=== PATIENT | female | born 1940 | race Caucasian/White ===

== ENCOUNTER → 2024-07-04 | Outpatient (CLI) | payer MEDICARE, SELFPAY ==
--- NOTE | 2024-07-04 | XR_ITS ---
Examination: PA lateral chest 2 views TECHNIQUE: Upright PA lateral chest 2 views Exam date and time: July 04, 2024 1515 hours INDICATIONS: History pulmonary nodule FINDINGS: Normal heart size No pneumonia or pulmonary edema No pulmonary nodule is depicted IMPRESSION: No active disease
== END | disposition home or self-care (01) ==
PROVIDERS: Referring Provider Specialist; Visit Provider Specialist
DX: R91.1 Solitary pulmonary nodule (principal)
CPT/HCPCS: 71046

== ENCOUNTER 2024-07-29 15:51 | Inpatient (IN) | payer MEDICARE, SELFPAY ==
[2024-07-29] VITALS (9 sets, daily range): BP systolic 120–156; BP diastolic 74–94; PULSE 67–80; RESP 14–23; TEMP 36.8–36.9; O2SAT 76–99; BMI 29.5
--- NOTE | 2024-07-29 16:04 | XR_ITS ---
Examination: PA lateral chest 2 views TECHNIQUE: Upright PA lateral chest 2 views INDICATIONS: Coughing up blood today FINDINGS: Normal heart size Lungs are clear. The osseous structures are intact IMPRESSION: No pneumonia or pulmonary edema If the patient has true hemoptysis, consider CT chest without contrast follow-up
--- NOTE | 2024-07-29 16:05 | PD.EDRME ---
Rapid Medical Screening Exam [facility] Arrival date/time: 07/29/24 15:51 84-year-old female with a history of hypertension, hyperlipidemia presents to the emergency room with a chief complaint of coughing and vomiting up bright red blood. I have greeted and performed a focused initial assessment of this patient. A comprehensive ED assessment and evaluation of the patient, analysis of all test results, and completion of the medical decision making process will be conducted by additional ED providers. Chief Complaint: GI Bleed Vital signs: Vital Signs Temperature 98.4 F 07/29/24 16:01 Pulse Rate 74 07/29/24 16:01 Respiratory Rate 20 07/29/24 16:01 Blood Pressure 156/74 H 07/29/24 16:01 Pulse Oximetry (%) 96 07/29/24 16:01 Oxygen Delivery Method Room Air 07/29/24 16:01 Vital signs reviewed by provider: Yes
[2024-07-29 17:12] LABS: Basophils % (Auto) 0 % (0-2.5); Eosinophils # (Auto) 0.1 Thou/mm3 (0.0-0.5); Eosinophils % (Auto) 2 % (0-10); Hematocrit 36.1 % (36.0-46.0); Hemoglobin 11.9 g/dL (12.0-16.0); Immature Granulocytes % (Auto) 0 % (0-0); Immature Granulocytes Auto 0.02 Thou/mm3 (0.00-0.00); Lymphocytes # (Auto) 2.2 Thou/mm3 (1.0-4.8); Lymphocytes % (Auto) 29 % (10-50); Mean Corpuscular Volume 91 fL (80-100); Monocytes # (Auto) 0.6 Thou/mm3 (0.0-0.8); Monocytes % (Auto) 9 % (0-12); Neutrophils # (Auto) 4.5 Thou/mm3 (1.8-7.7); Neutrophils % (Auto) 60 % (37-80); Nucleated Red Blood Cell % 0 /100 WBC (0); Platelet Count 199 Thou/mm3 (140-440); RDW Standard Deviation 46.6 fL (36.4-46.3); Red Blood Count 3.97 Miln/mm3 (4.00-5.20); White Blood Count 7.5 Thou/mm3 (3.6-11.0)
--- NOTE | 2024-07-29 17:21 | PD.EDGIBLD ---
ED GI Bleed RME/HPI General Chief complaint: GI Bleed Stated complaint: VOMITING BLOOD Time Seen by Provider: 07/29/24 17:16 Arrival date/time: 07/29/24 15:51 RME / HPI RME / HPI Narrative: 84-year-old female patient with significant history of hypertension, hyperlipidemia, macular degeneration, left eye blindness, on Plavix, came in for evaluation regarding vomiting blood. Patient has been having epigastric pain since yesterday, has been taking YESTERDAY, but today patient vomiting get worse this time associated with vomiting fresh blood about 1/2 cup full of blood. Patient denies any blood in the stool denies any changes to the color of the stool. Patient denies any dizziness denies any other complaints no medications taken prior travel. Related Data Home Medications ?Medication ?Instructions ?Recorded ?Confirmed bisacodyl 5 mg tablet,delayed 5 mg PO QDAY 08/27/22 08/27/22 release (Laxative (bisacodyl)) clopidogrel 75 mg tablet 75 mg PO QDAY 08/27/22 08/27/22 donepezil 5 mg tablet 5 mg PO HS 08/27/22 08/27/22 furosemide 40 mg tablet 40 mg PO QDAY 08/27/22 08/27/22 loratadine 10 mg tablet 10 mg PO QDAY 08/27/22 08/27/22 losartan 100 mg tablet 100 mg PO QDAY 08/27/22 08/27/22 meloxicam 15 mg tablet 15 mg PO QDAY PRN Pain 08/27/22 08/27/22 nifedipine 60 mg tablet,extended 60 mg PO QDAY 08/27/22 08/27/22 release potassium chloride 10 mEq 10 meq PO BID 08/27/22 08/27/22 tablet,extended release(part/cryst) rosuvastatin 20 mg tablet 20 mg PO AC 08/27/22 08/27/22 thyroid (pork) 60 mg tablet 60 mg PO QDAY 08/27/22 08/27/22 ([place] Thyroid) Allergies Allergy/AdvReac Type Severity Reaction Status Date / Time Penicillins Allergy Intermediate Rash Verified 07/29/24 15:55 Review of Systems Review of Systems Narrative Review of Systems: Review of system reviewed and within normal limits except mentioned in HPI ED Exam Narrative Physical exam: VITAL SIGNS: Reviewed. GENERAL APPEARANCE: Alert and interactive, follows commands, no acute distress, HEAD AND FACE: Non-traumatic. ENT: PERRL, pink conjunctivitis, eyelid no trauma, Mucous membrane moist. NECK: Supple, nontender, no nuchal rigidity. CHEST: No tenderness, no crepitus, no paradoxical movement, no retractions. LUNGS: Clear, well ventilated, symmetric, no rales, no wheezing, no ronchi, no stridor, good breath sounds bilaterally. HEART: Regular rate, regular rhythm, no murmur, no gallops. ABDOMEN: Soft, positive bowel sounds, nondistended, no guarding, nontender, no rebound, no masses, RECTAL: Deferred. GENITAL: Deferred. NEUROLOGICAL: Gross motor function intact sensory function intact, Appropriate for age. MUSCULOSKELETAL: low back nontender, full range of motion. EXTREMITIES: Nontender, full range of motion. SKIN: Color pink, dry, no rash, no lacerations, no abrasions, no contusions. LYMPHATICS: Deferred. Course Quality Measures none Orders Category Date Time Status COVID-19 Screening Questionnaire NOW Care 07/29/24 21:[address] Screening NOW Care 07/29/24 18:43 Active Decision to Admit X1 Care 07/29/24 21:47 Active Endoscopy Consents .On arrival Care 07/29/24 20:37 Active Insert IV NOW Care 07/29/24 17:14 Active NPO NOW Care 07/29/24 19:33 Active NPO after Midnight ONCE Care 07/29/24 20:37 Active Occult Blood,Stool (Nursing) ONCE Care 07/29/24 17:16 Active Consult to Gastroenterology Stat Cons 07/29/24 18:44 Ordered Diet NPO (NOW) Diet 07/29/24 19:33 Active Diet NPO after Midnight Diet 07/30/24 00:[address] abdomen pelvis w con Stat Exams 07/29/24 18:43 Completed XR chest 2V Stat Exams 07/29/24 16:04 Completed CBC Stat Lab 07/29/24 16:38 Completed CMP [Comprehensive Metabolic Panel] Stat Lab 07/29/24 16:38 Completed Cocci Serology IgM with reflex to IgG [Cocci Serology, Lab 07/29/24 16:38 Received Unk History] Stat Lipase Stat Lab 07/29/24 16:38 Completed Occult Blood, Stool (LAB) Stat Lab 07/29/24 17:25 Completed PT [Prothrombin Time with INR] Stat Lab 07/29/24 16:38 Completed PTT [Partial Thromboplastin Time] Stat Lab 07/29/24 16:38 Completed Type and Screen Stat Lab 07/29/24 16:38 Completed UA, C/S IF [Urinalysis, C/S if Indicated] Stat Lab 07/29/24 18:49 Completed Ondansetron Inj [Zofran Inj] Med 07/29/24 17:17 Discontinued 4 mg IV X1 ONE Pantoprazole Inj [Protonix Inj] Med 07/29/24 17:17 Discontinued 80 mg IV X1 ONE Sodium Chloride 0.9% 1000 ml [Ns] 1,000 ml Med 07/29/24 18:46 Discontinued IV 999 mls/hr Vital Signs Vital signs: Vital Signs Temperature 98.4 F 07/29/24 16:01 Pulse Rate 74 07/29/24 16:01 Respiratory Rate 20 07/29/24 16:01 Blood Pressure 156/74 H 07/29/24 16:01 Pulse Oximetry (%) 96 07/29/24 16:01 Oxygen Delivery Method Room Air 07/29/24 16:01 GI Bleed [facility] Narrative [facility] Narrative:: 84-year-old female patient with significant history of hypertension, hyperlipidemia, macular degeneration, left eye blindness, on Plavix, came in for evaluation regarding vomiting blood. Patient has been having epigastric pain since yesterday, has been taking YESTERDAY, but today patient vomiting get worse this time associated with vomiting fresh blood about 1/2 cup full of blood. Patient denies any blood in the stool denies any changes to the color of the stool. Patient denies any dizziness denies any other complaints no medications taken prior travel. Patient's workup today all came back unremarkable. CT scan of the abdomen and pelvis also showed gastritis pattern otherwise unremarkable. Spoke with GI specialist, who told me to admit the patient for endoscopy tomorrow morning. Patient data External records reviewed:: None Clinical information provided by:: none Social determinants that could affect healthcare access:: none Patient has the following chronic illnesses:: None How is presenting disease/condition affected by chronic disease/condition?: no chronic disease Evaluation data The following diagnostics were reviewed and interpreted by me:: lab results and radiology exam(s) Lab and/or radiology exams considered but not ordered:: None Interpretation Summary: See results in MDM Medications / Prescriptions Medications or Prescriptions considered but not ordered:: None Medication administrations:: Medication Administration History Discontinued Medications Sodium Chloride (Ns) 1,000 mls @ 999 mls/hr IV .Q1H1M ONE Stop: 07/29/24 19:46 Ondansetron HCl (Ondansetron Inj 2 Mg/Ml Inj 2 Ml) 4 mg IV X1 ONE; Protocol Stop: 07/29/24 17:18 Last Admin: 07/29/24 17:37 Dose: 4 mg Documented By: WILL Pantoprazole Sodium (Pantoprazole Inj 40 Mg Vial) 80 mg IV X1 ONE Stop: 07/29/24 17:18 Last Admin: 07/29/24 17:36 Dose: 80 mg Documented By: WILL Protonix IV, Zofran and IV fluids for hydration Consultations Consultation(s) initiated? (list below): Yes Consultation #1 (Physician, Specialty, Details): Dr. Garay, GI specialist on-call thank you Dr. Garay Diagnosis GI bleed differential diagnosis: esophageal varices, Jacquelyn-Malone syndrome and Upper gastrointestinal hemorrhage Most likely diagnosis given after review of the tests above:: Vomiting blood Admission Indicated Admission indicated?: indicated Admission Request Was there a request for admission?: Yes Admission Attestation Admission request attestation: Discussed case with Hospitalist service regarding admission. Discussed patients ED course, exam findings, labs, and radiology results. The Hospitalist [agrees,to accept the patient for admission. Disposition Plan Disposition Plan: Admit Discharge Plan Plan Patient Disposition: Admit Acute Care w/in Hospital Disposition Comment: Stable Prescriptions/Referrals Prescriptions/Med Rec: No Action furosemide 40 mg tablet 40 mg PO QDAY Patient Comments: TAKE 1 TABLET BY MOUTH EVERY DAY donepezil 5 mg tablet 5 mg PO HS Patient Comments: TAKE 1 TABLET BY MOUTH EVERYDAY AT BEDTIME meloxicam 15 mg tablet 15 mg PO QDAY PRN (Reason: Pain) Patient Comments: TAKE 1 TABLET BY MOUTH EVERY DAY NEEDED FOR PAIN clopidogrel 75 mg tablet 75 mg PO QDAY Patient Comments: TAKE 1 TABLET BY MOUTH EVERY DAY bisacodyl [Laxative (bisacodyl)] 5 mg tablet,delayed release (DR/EC) 5 mg PO QDAY Patient Comments: USE DIRECTED nifedipine 60 mg tablet extended release 60 mg PO QDAY Patient Comments: TAKE 1 TABLET BY MOUTH EVERY DAY ON EMPTY STOMACH FOR 90 DAYS losartan 100 mg tablet 100 mg PO QDAY Patient Comments: TAKE 1 TABLET BY MOUTH EVERY DAY loratadine 10 mg tablet 10 mg PO QDAY Patient Comments: TAKE 1 TABLET BY MOUTH EVERY DAY FOR 90 DAYS rosuvastatin 20 mg tablet 20 mg PO AC Patient Comments: TAKE 1 TABLET BY MOUTH EVERY DAY potassium chloride 10 mEq tablet,ER particles/crystals 10 meq PO BID Patient Comments: TAKE 1 TABLET BY MOUTH TWICE A DAY thyroid (pork) [[place] Thyroid] 60 mg tablet 60 mg PO QDAY Referrals: Hermes Mackey MD [Primary Care Provider] - In 1 week Problem List Clinical Impression: Vomiting blood Patient/Caregiver Discharge Instructions Print Language: Bol[place]ian Stand Alone Forms: [employer] Award Info., Patient Portal Info Letter
[2024-07-29] MEDS: PANTOPRAZOLE INJ 40 MG VIAL 80 MG IV (17:36)
[2024-07-29] MEDS: ONDANSETRON INJ 2 MG/ML INJ 2 ML 4 MG IV (17:37)
[2024-07-29 17:49] LABS: INR 1.1 (0.9-1.3); Partial Thromboplastin Time 26.9 Seconds (22.0-36.0); Prothrombin Time 11.8 Seconds (9.0-12.2)
[2024-07-29 18:05] LABS: Alanine Aminotransferase 23 U/L (10-49); Albumin, Serum 4.7 gm/dL (3.4-4.8); Albumin/Globulin Ratio 1.8 (1.2-2.2); Alkaline Phosphatase 82 U/L (46-116); Anion Gap 8 (7-16); Aspartate Amino Transferase 25 U/L (0-34); BUN/Creatinine Ratio 27 Ratio (12-20); Bilirubin,Total 0.6 mg/dL (0.3-1.2); Blood Urea Nitrogen 24 mg/dL (9-23); Calcium 10.5 mg/dL (8.3-10.6); Calcium (Corrected) 10.5 mg/dL (8.5-10.1); Carbon Dioxide 28.1 mMol/L (20.0-31.0); Chloride 102 mMol/L (98-107); Creatinine (Component) 0.9 mg/dL (0.6-1.3); Estimated Creatinine Clearance 46.2 mL/min (>60); Globulin 2.6 gm/dL (2.3-3.5); Glucose 90 mg/dL (74-106); Osmolality,Calculated 279 (275-295); Potassium 4.3 mMol/L (3.4-5.1); Sodium 138 mMol/L (136-145); Total Protein 7.3 gm/dL (5.7-8.2); eGFR > 60 See Note
[2024-07-29 18:08] LABS: OBS Developer Lot # 224; OBS Performed By boted; OBS QC OK? Yes; Occult Blood, Stool Negative (Negative)
[2024-07-29 18:23] LABS: Lipase 46 U/L (12-53)
--- NOTE | 2024-07-29 18:43 | XR_ITS ---
Examination: CT abdomen with intravenous contrast CT pelvis with intravenous contrast 2-D coronal reconstructions 2-D sagittal reconstructions Date and time of exam:July 29, 2024 1957 hours INDICATIONS: Vomiting blood today. CTDI: vol (mGy) 10.9 DLP: (mGycm) 629 Technique: Multiple axial sections of the abdomen and pelvis have been obtained. 64 slice high-resolution scanner used. 3 mm axial sections have been obtained, post intravenous injection of 60 cc [id number] 2-D sagittal, coronal reconstructions obtained. Low dose protocols were performed. One or more of the following dose reduction techniques were used; automated exposure control, adjustment of the mA and/or KV according to patient size, use of iterative reconstruction technique. Findings: No focal liver lesions Thickening of the gastric mucosa Contracted gallbladder Spleen is not enlarged No pancreatic mass Normal adrenal glands No renal or ureteral calculi, no hydronephrosis No pericecal inflammatory change 15 mm fat-containing umbilical hernia Colonic diverticulosis, no diverticulitis Air in the urinary bladder, no bladder mass Advanced degenerative disc disease L4-L5, L5-S1 IMPRESSION: Gastritis pattern
[2024-07-29 18:58] LABS: Collection Type, Urine Clean Catch
[2024-07-29 19:20] LABS: Bilirubin,Urine Negative (Negative); Blood,Urine Negative (Negative); Clarity,Urine Clear (Clear/Hazy); Color,Urine Colorless (Lt Yel-Yel); Culture Indicated,Urine Not Indicated; Glucose, Urine Negative (Negative); Ketones,Urine Negative (Negative); Leukocyte Esterase,Urine Positive (Negative); Nitrite,Urine Negative (Negative); PH,Urine 6.5 (5.0-7.0); Protein,Urine Negative (Neg - Trace); RBC,Urine 1 /hpf (0-3); Specific Gravity,Urine 1.006 (1.001-1.035); Squamous Epithelial Cell,Urine < 1 /hpf (0-5); Urobilinogen,Urine Negative mg/dL (0.0-1.0); WBC,Urine 1 /hpf (0-5)
[2024-07-29] MEDS: SODIUM CHLORIDE 0.9% 1000 ML 1,000 ML 999 ML IV (19:56)
--- NOTE | 2024-07-29 20:32 | PD.IMCONS ---
HPI Data of Consult Primary Care Provider: Hermes Mackey MD Consult Narrative Reason for consult: Hematemesis History of present illness: 84 years of female presented to the emergency room with hematemesis Presenting hemoglobin hematocrit 7.9 and 36.1 with a platelet count of 199,000 BUN/creatinine at [address] scan of the abdomen pelvis is pending at the moment She does take Plavix patient does have a history of essential hypertension hyperlipidemia macular degeneration of the eyes with the left eye completely blind and on Plavix cc:: cc: Review of Systems Review of Systems Systems Reviewed: All systems reviewed, normal except as documented Past Medical History Surgical History OTHER SURGICAL HX: As in the history of present illness Meds Home Medications and Allergies Home Medications ?Medication ?Instructions ?Recorded ?Confirmed ?Type bisacodyl 5 mg tablet,delayed 5 mg PO QDAY 08/27/22 08/27/22 History release (Laxative (bisacodyl)) clopidogrel 75 mg tablet 75 mg PO QDAY 08/27/22 08/27/22 History donepezil 5 mg tablet 5 mg PO HS 08/27/22 08/27/22 History furosemide 40 mg tablet 40 mg PO QDAY 08/27/22 08/27/22 History loratadine 10 mg tablet 10 mg PO QDAY 08/27/22 08/27/22 History losartan 100 mg tablet 100 mg PO QDAY 08/27/22 08/27/22 History meloxicam 15 mg tablet 15 mg PO QDAY PRN Pain 08/27/22 08/27/22 History nifedipine 60 mg tablet,extended 60 mg PO QDAY 08/27/22 08/27/22 History release potassium chloride 10 mEq 10 meq PO BID 08/27/22 08/27/22 History tablet,extended release(part/cryst) rosuvastatin 20 mg tablet 20 mg PO AC 08/27/22 08/27/22 History thyroid (pork) 60 mg tablet 60 mg PO QDAY 08/27/22 08/27/22 History ([place] Thyroid) Allergies Allergy/AdvReac Type Severity Reaction Status Date / Time Penicillins Allergy Intermediate Rash Verified 07/29/24 15:55 Exam Vital Signs Temp Pulse Resp BP Pulse Ox O2 Del Method 98.3 F 72 23 H 136/79 H 96 Room Air 07/29/24 17:20 07/29/24 17:20 07/29/24 17:20 07/29/24 17:20 07/29/24 17:20 07/29/24 17:20 Constitutional Comments: Alert oriented Routine Respiratory Exam Comments: Normal to auscultation Routine Abdominal Exam Comments: Soft nontender Results Labs 07/29/24 16:38 07/29/24 16:38 Labs: Short CBC 07/29/24 Range/Units 16:38 WBC 7.5 (3.6-11.0) Thou/mm3 Hgb 11.9 L (12.0-16.0) g/dL Hct 36.1 (36.0-46.0) % Plt Count 199 (140-440) Thou/mm3 BMP 07/29/24 16:38 Sodium 138 Potassium 4.3 Chloride 102 Carbon Dioxide 28.1 BUN 24 H Creatinine 0.9 Glucose 90 Calcium 10.5 Liver Function 07/29/24 Range/Units 16:38 Total Bilirubin 0.6 (0.3-1.2) mg/dL AST 25 (0-34) U/L ALT 23 (10-49) U/L Alkaline Phosphatase 82 (46-116) U/L Albumin 4.7 (3.4-4.8) gm/dL Urine 07/29/24 Range/Units 18:49 Urine Color Colorless A (Lt Yel-Yel) Urine Clarity Clear (Clear/Hazy) Urine pH 6.5 (5.0-7.0) Ur Specific [place] 1.006 (1.001-1.035) Urine Protein Negative (Neg - Trace) Urine Glucose (UA) Negative (Negative) Assessment and Plan Additional Assessment & Plan Additional Plan: # Hematemesis in a patient on Plavix Plan N.p.o. Serial CBC Consent obtained for fiberoptic esophagogastroduodenoscopy with possible biopsy possible therapeutic intervention under intravenous moderate sedation scheduled for tomorrow Will follow the patient Other medical problems include Essential hypertension Hyperlipidemia Macular degeneration of the eyes with left eye completely blind On Plavix Thank you once again for the opportunity to participate care of this patient
--- NOTE | 2024-07-29 23:33 | PD.RESHP ---
Documentation for date of: 07/29/24 HPI History of Present Illness Chief complaint: Hematemesis History of present illness: 83-year-old female with past medical history of hypertension, hyperlipidemia, hypothyroidism, aortic stenosis, history of colon cancer underwent surgery in [facility] in , history of gastric ulcer, hiatal hernia presented to the hospital with chief complaints of bloody vomiting. Patient was apparently normal till this morning. On the day of admission, patient went to her routine physical therapy and after returning home patient felt mild abdominal discomfort and sat down on the couch later had a bloody vomiting of approximately 100 to 150 mL. Denies abdominal pain, heartburn, palpitations, syncope, chest pain. Denies melena, hematochezia. Denies any similar episodes in the past but stated that she had abdominal pain for which she underwent endoscopy many years back and was diagnosed with having hiatal hernia and peptic ulcer disease. Dr. Garay was consulted and recommended endoscopy on 07/30/2024 ED Course: -Initial vitals were blood pressure 156/74 mmHg, rest of the vitals are within normal limits -Labs significant for Hb 11.9, BUN 24, creatinine 0.9. Urine analysis showed colorless, positive for leukocyte Esterace -CT abdomen showed gastritis pattern -In the ED, patient was given pantoprazole 80 Mg. -Patient was admitted for upper GI bleed, likely secondary to peptic ulcer disease Past medical history: Hypertension, hyperlipidemia, hypothyroidism, aortic stenosis, history of colon cancer, gastric ulcer, hiatal hernia Past surgical history: Bilateral knee replacement, spine surgery, surgery for colon cancer in Social history: Denies smoking, alcohol, other illicit drug abuse. Review of Systems Review of Systems Systems Reviewed: All systems reviewed, normal except as documented Exam Vital Signs Temp Pulse Resp BP Pulse Ox O2 Del Method 98.3 F 73 17 152/86 H 99 Room Air 07/29/24 17:20 07/29/24 23:00 07/29/24 23:00 07/29/24 23:00 07/29/24 23:00 07/29/24 21:15 Narrative Exam General: Awake. HEENT: Normocephalic, atraumatic, mucous membranes moist. Heart: Regular rate and rhythm, ejection systolic murmur heard at aortic area Lungs: Clear to auscultation with no wheezing or crackles. Abdomen: Soft, nondistended, nontender, positive bowel sounds. ?No guarding or rebound tenderness. Neurologic: Alert and oriented x3, no gross neurological deficit, and patient able to move all 4 extremities. Extremities: No edema. Skin: No rash or ecchymoses. Results: Labs 07/30/24 04:35 07/30/24 04:35 Labs: Short CBC 07/29/24 Range/Units 16:38 WBC 7.5 (3.6-11.0) Thou/mm3 Hgb 11.9 L (12.0-16.0) g/dL Hct 36.1 (36.0-46.0) % Plt Count 199 (140-440) Thou/mm3 BMP 07/29/24 16:38 Sodium 138 Potassium 4.3 Chloride 102 Carbon Dioxide 28.1 BUN 24 H Creatinine 0.9 Glucose 90 Calcium 10.5 Liver Function 07/29/24 Range/Units 16:38 Total Bilirubin 0.6 (0.3-1.2) mg/dL AST 25 (0-34) U/L ALT 23 (10-49) U/L Alkaline Phosphatase 82 (46-116) U/L Albumin 4.7 (3.4-4.8) gm/dL Urine 07/29/24 Range/Units 18:49 Urine Color Colorless A (Lt Yel-Yel) Urine Clarity Clear (Clear/Hazy) Urine pH 6.5 (5.0-7.0) Ur Specific [place] 1.006 (1.001-1.035) Urine Protein Negative (Neg - Trace) Urine Glucose (UA) Negative (Negative) Quality Measures Quality Measures none Advance care planning discussed with:: patient and child Medications Home Medications and Allergies Home Medications ?Medication ?Instructions ?Recorded ?Confirmed ?Type bisacodyl 5 mg tablet,delayed 5 mg PO QDAY 08/27/22 07/30/24 History release (Laxative (bisacodyl)) clopidogrel 75 mg tablet 75 mg PO QDAY 08/27/22 08/27/22 History donepezil 5 mg tablet 5 mg PO HS 08/27/22 07/30/24 History furosemide 40 mg tablet 40 mg PO QDAY 08/27/22 08/27/22 History loratadine 10 mg tablet 10 mg PO QDAY 08/27/22 08/27/22 History losartan 100 mg tablet 100 mg PO QDAY 08/27/22 07/30/24 History meloxicam 15 mg tablet 15 mg PO QDAY PRN Pain 08/27/22 08/27/22 History nifedipine 60 mg tablet,extended 60 mg PO QDAY 08/27/22 08/27/22 History release potassium chloride 10 mEq 10 meq PO BID 08/27/22 08/27/22 History tablet,extended release(part/cryst) rosuvastatin 20 mg tablet 20 mg PO AC 08/27/22 08/27/22 History thyroid (pork) 60 mg tablet 60 mg PO QDAY 08/27/22 08/27/22 History ([place] Thyroid) Allergies Allergy/AdvReac Type Severity Reaction Status Date / Time Penicillins Allergy Intermediate Rash Verified 07/29/24 15:55 Visit Medications Discontinued Medications Sodium Chloride (Ns) 1,000 mls @ 999 mls/hr IV .Q1H1M ONE Stop: 07/29/24 19:46 Last Infusion: 07/29/24 21:30 Dose: Infused Ondansetron HCl (Ondansetron Inj 2 Mg/Ml Inj 2 Ml) 4 mg IV X1 ONE; Protocol Stop: 07/29/24 17:18 Last Admin: 07/29/24 17:37 Dose: 4 mg Pantoprazole Sodium (Pantoprazole Inj 40 Mg Vial) 80 mg IV X1 ONE Stop: 07/29/24 17:18 Last Admin: 07/29/24 17:36 Dose: 80 mg Assessment & Plan Plan 83-year-old female with past medical history of hypertension, hyperlipidemia, hypothyroidism, aortic stenosis, history of colon cancer underwent surgery in [facility] in , history of gastric ulcer, hiatal hernia presented to the hospital with chief complaints of bloody vomiting and admitted for upper GI bleed likely secondary to peptic ulcer disease due to clopidogrel # Hematemesis, upper GI bleed # Likely peptic ulcer disease vs Gastritis in the setting of clopidogrel intake -Patient had a history of hiatal hernia and gastric ulcer many years ago which was diagnosed endoscopically -Presented to the hospital with complaints of 1 episode of bloody emesis on the day of admission, 100 to 150 mL -Denies melena, hematochezia, abdominal pain. -Vitals are stable at the time of admission -Hemoglobin is 11.9 at the time of admission and hemoglobin in 2021 is 11.9 -No abnormality detected on abdominal examination -CT abdomen showed gastritis pattern -Patient received 80 Mg of IV pantoprazole in the ED Plan -Dr. Garay was consulted and recommended endoscopy on 07/30/2024 -Patient was kept on n.p.o. 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 IV lines: Peripheral Code status: Full code Patient plan of care was discussed with the attending physician, Dr. Ninfa Canas, PGY1 Attending Provider Attestation/Addendum I attest that I was physically present for the evaluation, physical examination, lab and imaging review of the patient with the residents. I discussed the case with the residents and agree with the findings and plans of care as documented above. Patient is an 83 years old female with past medical history of hypertension, hyperlipidemia, hypothyroidism, aortic stenosis, colon cancer status postsurgery, gastric ulcer, hiatal hernia who presented to the ED with complaint of bloody vomiting. At bedside, patient appears comfortable, denies abdominal pain, heartburn, melena or hematochezia. Noted to have blood pressure of 156/74, rest of the vitals were within normal limits. Hemoglobin was 11.9. CT abdomen was done which shows gastritis pattern. Patient received pantoprazole IV 80 mg in the ED. Dr. Garay was consulted by ED, who recommended admission of the patient for endoscopy. We will admit patient for upper GI bleeding likely secondary to peptic ulcer disease while patient was taking clopidogrel. Started patient on pantoprazole 40 mg IV twice daily, we will keep patient n.p.o. and await GI recommendations. We will continue her home medication for hypothyroidism. Plan to resume her antihypertensives if blood pressure starts to go higher. Carlos Ocasio MD
[2024-07-30] VITALS (24 sets, daily range): BP systolic 137–187; BP diastolic 62–96; PULSE 61–77; RESP 13–42; TEMP 36.3–37.1; O2SAT 91–100
--- NOTE | 2024-07-30 02:54 | PC.NURSE ---
Pt asleep with family at bedside. Coffee provided to family.
[2024-07-30 04:49] LABS: Basophils % (Auto) 0 % (0-2.5); Eosinophils # (Auto) 0.1 Thou/mm3 (0.0-0.5); Eosinophils % (Auto) 3 % (0-10); Hematocrit 33.3 % (36.0-46.0); Hemoglobin 11.1 g/dL (12.0-16.0); Immature Granulocytes % (Auto) 0 % (0-0); Immature Granulocytes Auto 0.01 Thou/mm3 (0.00-0.00); Lymphocytes # (Auto) 1.6 Thou/mm3 (1.0-4.8); Lymphocytes % (Auto) 35 % (10-50); Mean Corpuscular HGB Conc 33.3 g/dl (31.0-37.0); Mean Corpuscular Hemoglobin 29.9 pg (25.0-35.0); Mean Corpuscular Volume 90 fL (80-100); Monocytes # (Auto) 0.4 Thou/mm3 (0.0-0.8); Monocytes % (Auto) 9 % (0-12); Neutrophils # (Auto) 2.4 Thou/mm3 (1.8-7.7); Neutrophils % (Auto) 53 % (37-80); Nucleated Red Blood Cell % 0 /100 WBC (0); Platelet Count 159 Thou/mm3 (140-440); RDW Standard Deviation 46.2 fL (36.4-46.3); Red Blood Count 3.71 Miln/mm3 (4.00-5.20); White Blood Count 4.6 Thou/mm3 (3.6-11.0)
[2024-07-30 05:09] LABS: Anion Gap 6 (7-16); BUN/Creatinine Ratio 21 Ratio (12-20); Blood Urea Nitrogen 17 mg/dL (9-23); Calcium 9.6 mg/dL (8.3-10.6); Carbon Dioxide 31.1 mMol/L (20.0-31.0); Chloride 107 mMol/L (98-107); Creatinine (Component) 0.8 mg/dL (0.6-1.3); Glucose 111 mg/dL (74-106); Osmolality,Calculated 289 (275-295); Sodium 144 mMol/L (136-145); Thyroid Stimulating Hormone 0.49 uIU/mL (0.55-4.78); eGFR > 60 See Note
[2024-07-30 06:11] LABS: Glucose Estimated Average 126 mg/dL (80-131)
[2024-07-30] MEDS: PANTOPRAZOLE INJ 40 MG VIAL IVP ×2 (09:29→20:23)
[2024-07-30] MEDS: LOSARTAN POTASSIUM 25 MG TABLET 50 MG PO (09:30)
[2024-07-30 14:40] LABS: Cocci Serology, IgM Negative (Negative)
--- NOTE | 2024-07-30 17:04 | PD.RESPRO ---
Documentation for date of: 07/30/24 Subjective Subjective Interval history: Patient was seen and examined at bedside in ICU this AM. No acute events overnight. Patient NPO for EGD, adequate urine output and mentation is at baseline. Patient endorses improvement of abdominal pain and no more episodes of hematemsis or hematochezia. She has not had a BM yet since hospitalization. Pending GI recommendations post EGD , Hb 11.1 and Hct 33% Exam Vital Signs Temp Pulse Resp BP Pulse Ox O2 Del Method O2 Flow Rate 98.1 F 69 14 173/78 H 99 Nasal Cannula 1 07/30/24 14:22 07/30/24 14:52 07/30/24 14:52 07/30/24 14:52 07/30/24 14:52 07/30/24 14:22 07/30/24 14:42 Narrative Exam Constitutional Alert, oriented x3 and comfortable, elderly HEENT Vision grossly intact. Patent nares. Trachea midline. Respiratory Chest normal on inspection and clear to auscultation bilaterally. Cardiovascular S1 and S2 audible, RRR. No murmurs or carotid bruit. No gross JVD. Abdominal Soft, tender to palpation in epigastric region. BS + Genitourinary No bladder tenderness, no flank pain. Normal to palpation. Musculoskeletal Extremities tone within normal limits. No LE edema. Neurological CN II - XII grossly intact. Extremity motor and sensation grossly intact. Skin Varicosities and skin changes noted on B/L LE Psychiatric Patient has a good affect, is cooperative. Objective Labs 07/30/24 04:35 07/30/24 04:35 Labs: Laboratory Results - last 24 hr 07/29/24 07/29/24 07/29/24 16:38 17:25 18:49 WBC 7.5 RBC 3.97 L Hgb 11.9 L Hct 36.1 MCV 91 MCH 30.0 MCHC 33.0 RDW Std Deviation 46.6 H Plt Count 199 Neut % (Auto) 60 Lymph % (Auto) 29 [place] % (Auto) 9 Eos % (Auto) 2 Baso % (Auto) 0 Neut # (Auto) 4.5 Lymph # (Auto) 2.2 [place] # (Auto) 0.6 Eos # (Auto) 0.1 Baso # (Auto) 0.0 Immature Gran # (Auto) 0.02 H Absolute Nucleated RBC 0.00 Immature Gran % 0 Nucleated RBC % 0 PT 11.8 INR 1.1 APTT 26.9 Sodium 138 Potassium 4.3 Chloride 102 Carbon Dioxide 28.1 Anion Gap 8 BUN 24 H Creatinine 0.9 Estim Creat Clear Calc 46.2 L eGFR > 60 BUN/Creatinine Ratio [address] Glucose [address] Glu mg/dL Hemoglobin A1c Calculated Osmolality 279 Calcium 10.5 Corrected Calcium 10.5 H Total Bilirubin 0.6 AST 25 ALT 23 Alkaline Phosphatase 82 Total Protein 7.3 Albumin 4.7 Globulin 2.6 Albumin/Globulin Ratio 1.8 Lipase 46 TSH Ur Collection Type Clean Catch Urine Color Colorless A Urine Clarity Clear Urine pH 6.5 Ur Specific [place] 1.006 Urine Protein Negative Urine Glucose (UA) Negative Urine Ketones Negative Urine Blood Negative Urine Nitrite Negative Urine Bilirubin Negative Urine Urobilinogen (Auto) Negative Ur Leukocyte Esterase Positive Urine RBC 1 Urine WBC 1 Ur Squamous Epith Cells < 1 Urine Bacteria None Ur Culture Indicated? Not Indicated Stool Occult Blood Negative Coccidioides IgM Ab Negative Blood Type O Positive Antibody Screen NEGATIVE Blood Bank Wristband ID Yes 07/30/24 04:35 WBC 4.6 RBC 3.71 L Hgb 11.1 L Hct 33.3 L MCV 90 MCH 29.9 MCHC 33.3 RDW Std Deviation 46.2 Plt Count 159 D Neut % (Auto) 53 Lymph % (Auto) 35 [place] % (Auto) 9 Eos % (Auto) 3 Baso % (Auto) 0 Neut # (Auto) 2.4 Lymph # (Auto) 1.6 [place] # (Auto) 0.4 Eos # (Auto) 0.1 Baso # (Auto) 0.0 Immature Gran # (Auto) 0.01 H Absolute Nucleated RBC 0.00 Immature Gran % 0 Nucleated RBC % 0 PT INR APTT Sodium 144 Potassium 4.0 Chloride 107 Carbon Dioxide 31.1 H Anion Gap 6 L BUN 17 Creatinine 0.8 Estim Creat Clear Calc 52.0 L eGFR > 60 BUN/Creatinine Ratio 21 H Glucose [address] Glu mg/dL 126 Hemoglobin A1c 6.0 Calculated Osmolality 289 Calcium 9.6 Corrected Calcium Total Bilirubin AST ALT Alkaline Phosphatase Total Protein Albumin Globulin Albumin/Globulin Ratio Lipase TSH 0.49 L Ur Collection Type Urine Color Urine Clarity Urine pH Ur Specific [place] Urine Protein Urine Glucose (UA) Urine Ketones Urine Blood Urine Nitrite Urine Bilirubin Urine Urobilinogen (Auto) Ur Leukocyte Esterase Urine RBC Urine WBC Ur Squamous Epith Cells Urine Bacteria Ur Culture Indicated? Stool Occult Blood Coccidioides IgM Ab Blood Type Antibody Screen Blood Bank Wristband ID Quality Measures Quality Measures none Advance care planning discussed with:: patient and child Assessment & Plan Assessment Current Active Medications: Generic Name Dose Route Start Last Admin Trade Name Freq PRN Reason Stop Dose Admin Acetaminophen 650 mg 07/29/24 23:38 Acetaminophen 325 Mg Tablet PO 08/28/24 23:37 Q6H PRN Fever >101.5 Hydralazine HCl 10 mg 07/30/24 17:03 Hydralazine Inj 20 Mg/Ml Vial IV 07/30/24 17:04 X1 ONE Levothyroxine Sodium 75 mcg 07/31/24 06:00 Levothyroxine Sodium 25 Mcg Tablet PO 08/29/24 05:59 ACBR EL Losartan Potassium 50 mg 07/30/24 09:00 07/30/24 09:30 Losartan Potassium 25 Mg Tablet PO 08/29/24 08:59 50 mg QDAY EL Administration Ondansetron HCl 4 mg 07/29/24 23:38 Ondansetron Inj 2 Mg/Ml Inj 2 Ml IV 08/28/24 23:37 Q6H PRN NAUSEA OR VOMITING Protocol Pantoprazole Sodium 40 mg 07/30/24 09:00 07/30/24 09:29 Pantoprazole Inj 40 Mg Vial IVP 08/29/24 08:59 40 mg BID EL Administration Plan Patient is a 83-year-old female with past medical history of hypertension, hyperlipidemia, hypothyroidism, aortic stenosis, history of colon cancer underwent surgery in [facility] in , history of gastric ulcer, hiatal hernia presented to the hospital with chief complaints of bloody vomiting and admitted for upper GI bleed likely secondary to peptic ulcer disease due to clopidogrel 1. Hematemesis, likely upper GI bleed 2. R/o peptic ulcer disease vs Gastritis secondary to 3. Active clopidogrel use, chronic 4. Hiatel hernia 5. Hx of gastric ulcers -Patient had a history of hiatal hernia and gastric ulcer many years ago which was diagnosed endoscopically -Presented to the hospital with complaints of 1 episode of large bloody emesis on the day of admission, 100 to 150 mL -Denies melena, hematochezia, abdominal pain. -Vitals are stable at the time of admission -Hemoglobin is 11.9 at the time of admission (hemoglobin in 2021 is 11.9) -No abnormality detected on abdominal examination -CT abdomen : gastritis pattern -In the ED, received 80 Mg of IV pantoprazole x1 Plan -Dr. Garay was consulted, appreciate recommendations -Endoscopy planned for 07/30/2024 -Patient NPO until further recs -On pantoprazole 40 Mg IV twice daily [07/30- 6. History of hypertension 7. History of hypothyroidism -Resumed her home medications -TSH = 0.45 (low) -Monitor her blood pressures and titrate medication accordingly 8. History of aortic stenosis 9. History of heart failure -Patient was following with Dr Hutchinson in [place] -Is using Lasix for the lower extremity swelling, denies history of CAD Plan: -Recommended to continue follow-up on outpatient basis with her lean manufacturing leader -May need to re-evaluate need for plavix Hospital Maintenance: Dispo: Tele/ICU , pending EGD by Dr Garay DVT ppx: SCD GI ppx: Pantoprazole Diet: N.p.o. IV lines: Peripheral Code status: Full code Plan of care discussed with attending Lion Kraft M.D. PGY2
[2024-07-30] MEDS: hydrALAZINE INJ 20 MG/ML VIAL 10 MG IV (18:05)
--- NOTE | 2024-07-30 23:45 | PC.NURSE ---
Dr. Antony aware of low bp new order for 500ns bolus will recheck bp after bolus. Pt is alert no c/o pain or discomfort resp even and unlabored 0 sob.
[2024-07-31] VITALS: BP 159/86; PULSE 86; RESP 18; TEMP 36.4; O2SAT 96
[2024-07-31 04:00] VITALS: BP 163/78; PULSE 65; RESP 16; TEMP 36.6; O2SAT 94
[2024-07-31] MEDS: LEVOTHYROXINE SODIUM 25 MCG TABLET 75 MCG PO (05:38)
[2024-07-31 05:42] LABS: Basophils % (Auto) 0 % (0-2.5); Eosinophils # (Auto) 0.2 Thou/mm3 (0.0-0.5); Eosinophils % (Auto) 2 % (0-10); Hematocrit 34.4 % (36.0-46.0); Hemoglobin 11.3 g/dL (12.0-16.0); Immature Granulocytes % (Auto) 0 % (0-0); Immature Granulocytes Auto 0.02 Thou/mm3 (0.00-0.00); Lymphocytes # (Auto) 1.7 Thou/mm3 (1.0-4.8); Lymphocytes % (Auto) 27 % (10-50); Mean Corpuscular HGB Conc 32.8 g/dl (31.0-37.0); Mean Corpuscular Hemoglobin 29.9 pg (25.0-35.0); Mean Corpuscular Volume 91 fL (80-100); Monocytes # (Auto) 0.6 Thou/mm3 (0.0-0.8); Monocytes % (Auto) 9 % (0-12); Neutrophils # (Auto) 3.9 Thou/mm3 (1.8-7.7); Neutrophils % (Auto) 61 % (37-80); Nucleated Red Blood Cell % 0 /100 WBC (0); Platelet Count 153 Thou/mm3 (140-440); RDW Standard Deviation 46.9 fL (36.4-46.3); Red Blood Count 3.78 Miln/mm3 (4.00-5.20); White Blood Count 6.4 Thou/mm3 (3.6-11.0)
[2024-07-31 06:16] LABS: Anion Gap 7 (7-16); BUN/Creatinine Ratio 18 Ratio (12-20); Blood Urea Nitrogen 14 mg/dL (9-23); Calcium 9.4 mg/dL (8.3-10.6); Carbon Dioxide 27.5 mMol/L (20.0-31.0); Chloride 106 mMol/L (98-107); Creatinine (Component) 0.8 mg/dL (0.6-1.3); Free T4 (Free Thyroxine) 1.34 ng/dL (0.89-1.76); Glucose 111 mg/dL (74-106); Osmolality,Calculated 280 (275-295); Sodium 140 mMol/L (136-145); eGFR > 60 See Note
[2024-07-31 08:00] VITALS: BP 134/59; PULSE 67; RESP 19; TEMP 36.2; O2SAT 94
[2024-07-31] MEDS: PANTOPRAZOLE INJ 40 MG VIAL IVP (09:20)
[2024-07-31 09:21] VITALS: BP 134/59; PULSE 67
[2024-07-31] MEDS: LOSARTAN POTASSIUM 25 MG TABLET 50 MG PO (09:21)
--- NOTE | 2024-07-31 11:08 | PC.SS ---
Cheryl Green is 84-year-old female admitted to Med-Surg for GI Bleed. SS conducted bedside contact with the patient to complete initial assessment and to discuss discharge planning. Patient confirmed demographic information. Patient identifies her dtr Veronica Montilla [phone] as her surrogate decision maker. Patient resides at home alone; dtr lives 5min away and visits her often. Pt states she is able to complete all ADL?s independently, has a cane and FWW. Pts PCP is Dr. Mackey (over phone visit last week) and her pharmacy of choice is [facility]. DC olptions discussed, pt wishes to return home. Dtr will provide transportation upon DC. No further intervention required at this time, social media sr strategy manager would be available to address any further concerns. DC Plan: Home Contact: dtr Veronica Montilla [phone] PCP: Narendra
--- NOTE | 2024-07-31 14:13 | PD.RESDS ---
Planned Discharge Date 07/31/24 DS: Providers Provider Date of admission: 07/29/24 23:38 Primary care physician: Hermes Mackey MD Admitting Provider: Carlos Ocasio MD Attending Provider on Admission: Carlos Ocasio MD Consults: 07/29/24 18:44 Consult to Gastroenterology Stat Comment: Vomiting blood Consulting Provider: Italia Garay Attending Provider on DC: Darryn Young MD Discharging Provider: Darryn Young MD DS: Diagnosis Problem List Completed Was Problem List Reviewed/Reconciled?: Yes Hospital Course Hospital Course Hospital course: Patient is a 83 years old female with past medical history of hypertension, hyperlipidemia, hypothyroidism, aortic stenosis, history of colon cancer underwent surgery in [facility] in , history of gastric ulcer, hiatal hernia presented to the hospital with chief complaints of bloody vomiting. On the day of admission, patient went to her routine physical therapy and after returning home patient felt mild abdominal discomfort and sat down on the couch later had a bloody vomiting of approximately 100 to 150 mL. Patient stated that she had abdominal pain for which she underwent endoscopy many years back and was diagnosed with having hiatal hernia and peptic ulcer disease. Initial vitals were blood pressure 156/74 mmHg, rest of the vitals are within normal limits. Labs significant for Hb 11.9, BUN 24, creatinine 0.9. Urine analysis showed colorless, positive for LE. CT abdomen showed gastritis pattern. In the ED, patient was given pantoprazole 80 Mg. Patient was admitted for upper GI bleed, likely secondary to peptic ulcer disease. Gastroenterology Dr. Garay was consulted and recommended endoscopy, which showed non-bleeding erosions and gastritis pattern. Her nausea and vomiting has resolved, hemoglobin remained stable. She was cleared for discharge today. Start taking protonix 40 mg daily. Continue home medications as prescribed. Follow up with PCP and GI within 2 weeks. #Hematemesis, likely upper GI bleed. #R/o peptic ulcer disease vs gastritis. #Hiatel hernia. #Hx of gastric ulcers. #History of hypertension. #History of hypothyroidism. #History of aortic stenosis. #History of heart failure. Plan of care discussed with attending Dr. Montelongo. Darryn Young MD, PGY 2. Disclaimer: This note was dictated by speech recognition. Minor errors in salt manager may be present due to voice recognition software. Time Spent with Patient Time attestation: Total time spent providing and/or coordinating discharge services: 40 min Exam Vital Signs Temp Pulse Resp BP Pulse Ox O2 Del Method O2 Flow Rate 97.1 F 67 19 134/59 H 94 L Nasal Cannula 1 07/31/24 08:00 07/31/24 09:21 07/31/24 08:00 07/31/24 09:21 07/31/24 08:00 07/31/24 08:00 07/31/24 08:00 Narrative Exam Gen: Well-developed and well-nourished. HEENT: NCAT, PERRLA, EOMI, MMM, anicteric conjunctivae. CVS: normal S1 and S2. RRR. No M/R/G. Resp: CTA B/L. No rhonchi, rales, crackles or wheezing. Abd: soft, non-tender, non-distended. BS+ in all 4 quadrants. MSK: Good ROM in BUE & BLE. No edema. Venous stasis dermatitis BLE. Neuro: CN II-XII grossly intact. Strength 5/5 in BUE & BLE. Alert and oriented x3. Psych: appropriate mood and affect. Discharge Plan Plan Patient Disposition: HOME (Self Care) Disposition Comment: Stable Care Plan Goals: Start taking protonix 40 mg daily. Continue home medications as prescribed. Follow up with PCP and GI within 2 weeks. Prescriptions/Referrals Prescriptions/Med Rec: New pantoprazole 40 mg tablet,delayed release (DR/EC) 40 mg PO QDAY Qty: 30 2RF Continued furosemide 40 mg tablet 40 mg PO QDAY Patient Comments: TAKE 1 TABLET BY MOUTH EVERY DAY donepezil 5 mg tablet 5 mg PO HS Patient Comments: TAKE 1 TABLET BY MOUTH EVERYDAY AT BEDTIME meloxicam 15 mg tablet 15 mg PO QDAY PRN (Reason: Pain) Patient Comments: TAKE 1 TABLET BY MOUTH EVERY DAY NEEDED FOR PAIN clopidogrel 75 mg tablet 75 mg PO QDAY Patient Comments: TAKE 1 TABLET BY MOUTH EVERY DAY bisacodyl [Laxative (bisacodyl)] 5 mg tablet,delayed release (DR/EC) 5 mg PO QDAY Patient Comments: USE DIRECTED nifedipine 60 mg tablet extended release 60 mg PO QDAY Patient Comments: TAKE 1 TABLET BY MOUTH EVERY DAY ON EMPTY STOMACH FOR 90 DAYS losartan 100 mg tablet 100 mg PO QDAY Patient Comments: TAKE 1 TABLET BY MOUTH EVERY DAY loratadine 10 mg tablet 10 mg PO QDAY Patient Comments: TAKE 1 TABLET BY MOUTH EVERY DAY FOR 90 DAYS rosuvastatin 20 mg tablet 20 mg PO AC Patient Comments: TAKE 1 TABLET BY MOUTH EVERY DAY potassium chloride 10 mEq tablet,ER particles/crystals 10 meq PO BID Patient Comments: TAKE 1 TABLET BY MOUTH TWICE A DAY thyroid (pork) [Coello Thyroid] 60 mg tablet 60 mg PO QDAY Referrals: Italia Garay MD [Physician] - Hermes Mackey MD [Primary Care Provider] - Patient/Caregiver Discharge Instructions Print Language: Maltese Stand Alone Forms: [facility] Award Info., Patient Portal Info Letter Discharge Order Discharge Orders: Discharge (Routine); Ordered 07/31/24 Ordered By: Darryn Young Quality Discharge Quality Measures VTE prophylaxis
[2024-08-01 15:40] LABS: Cocci Serology, IgG Negative (Negative)
== END 2024-07-31 12:00 | disposition home or self-care (01) | DRG 382 ==
LOC: SERX 21:56 → SERHOLD 07-30 00:02 → S2SX 07-30 13:57 → S3SX 07-31 10:40 → S2SX 08-01 06:10 → SERHOLD 08-01 06:10
PROVIDERS: Nurse Practitioner Family; Specialist; Admitting Provider Student in an Organized Health Care Education/Training Program; Emergency Provider Emergency Medicine; PCP Family Medicine; Referring Provider Emergency Medicine; Visit Provider Student in an Organized Health Care Education/Training Program
PROC: (CPT 43239; principal; 2024-07-30 14:00)
DX: K22.10 Ulcer of esophagus without bleeding (principal); I50.9 Heart failure, unspecified; I11.0 Hypertensive heart disease with heart failure; E03.9 Hypothyroidism, unspecified; K29.70 Gastritis, unspecified, without bleeding; K31.89 Other diseases of stomach and duodenum; E78.5 Hyperlipidemia, unspecified; Z85.038 Personal history of other malignant neoplasm of large intestine; Z87.11 Personal history of peptic ulcer disease; H54.62 Unqualified visual loss, left eye, normal vision right eye; H35.30 Unspecified macular degeneration; Z96.653 Presence of artificial knee joint, bilateral; Z88.0 Allergy status to penicillin; Z79.02 Long term (current) use of antithrombotics/antiplatelets; Z79.899 Other long term (current) drug therapy; I35.0 Nonrheumatic aortic (valve) stenosis
CPT/HCPCS: 36415; 71046; 74177; 80048; 80053; 81001; 82270; 83036; 83690; 84439; 84443; 85025; 85610; 85730; 86331; 86635; 86850; 86900; 86901; 96361; 96374; 96375; 99285; A4649; J0360; J2250; J2405; J2470; J3010; J7030; Q9967; A9270

== ENCOUNTER → 2025-02-02 | Outpatient (BNVA) | payer MEDICARE, SELFPAY | END | disposition home or self-care (01) | PROVIDERS: PCP Family Medicine; Referring Provider Family Medicine; Visit Provider Urology | DX: N39.0 Urinary tract infection, site not specified (principal); R32 Unspecified urinary incontinence; E11.9 Type 2 diabetes mellitus without complications; I10 Essential (primary) hypertension; I25.10 Atherosclerotic heart disease of native coronary artery without angina pectoris; Z85.038 Personal history of other malignant neoplasm of large intestine; E78.00 Pure hypercholesterolemia, unspecified; E03.9 Hypothyroidism, unspecified | CPT/HCPCS: 51701; 81003; 99212; G0463 ==

== ENCOUNTER → 2025-03-20 | Outpatient (BNVA) | payer MEDICARE, SELFPAY | END | disposition home or self-care (01) | PROVIDERS: PCP Family Medicine; Referring Provider Family Medicine; Visit Provider Urology | DX: N35.92 Unspecified urethral stricture, female (principal); E11.9 Type 2 diabetes mellitus without complications; I10 Essential (primary) hypertension; I25.10 Atherosclerotic heart disease of native coronary artery without angina pectoris; Z85.038 Personal history of other malignant neoplasm of large intestine; E78.00 Pure hypercholesterolemia, unspecified; E03.9 Hypothyroidism, unspecified | CPT/HCPCS: 52281; 81003; 96372; A4217; A4649; C1894; J1580; A9270 ==

== ENCOUNTER → 2025-04-10 | Outpatient (BNVA) | payer MEDICARE, SELFPAY | END | disposition home or self-care (01) | PROVIDERS: PCP Internal Medicine; Referring Provider Internal Medicine; Visit Provider Urology Female Pelvic Medicine and Reconstructive Surgery | DX: N39.46 Mixed incontinence (principal); N81.10 Cystocele, unspecified; I10 Essential (primary) hypertension | CPT/HCPCS: 81003; 99212; G0463 ==